=== PATIENT | female | born 1995 | race Caucasian/White ===

== ENCOUNTER 2017-09-12 11:00 | Emergency (ER) | payer OTHER ==
[2017-09-12 11:21] VITALS: BMI 22.1
--- NOTE | 2017-09-12 11:23 | PDOC ---
History of Present Illness - General History Source: Patient Exam Limitations: No Limitations - History of Present Illness Initial Comments: 09/12/17 11:42 22 year old female with no significant past medical history who presents to the ED complaining of approximately 3 days of nausea and multiple episodes of nonbloody nonbilious vomiting. States she vomits approximately 10 times per day and has now progressed to the point of wretching. She is not able to tolerate fluids PO. She now also complains of intermittent, crampy, epigastric pain, burning chest pain with vomiting, and loose stools this morning. The patient denies fever or chills. She denies shortness of breath or palpitations. She does endorse questionable bad foods, but denies recent travel or antibiotic use. <Claribel Pappas - Last Filed: 09/12/17 11:50> <Gibran Alcantar - Last Filed: 09/12/17 16:07> - General Chief Complaint: Pain, Acute Stated Complaint: Nausea/Vomiting Time Seen by Provider: 09/12/17 11:19 Past History <Claribel Pappas - Last Filed: 09/12/17 11:50> - Past Medical History COPD: No - Surgical History Appendectomy: Yes - Suicide/Smoking/Psychosocial Hx Smoking History: Never smoked Information on smoking cessation initiated: No Hx Alcohol Use: No Drug/Substance Use Hx: No Substance Use Type: None <Gibran Alcantar - Last Filed: 09/12/17 16:07> - Past Medical History Allergies/Adverse Reactions: Allergies Allergy/AdvReac Type Severity Reaction Status Date / Time Egg Derived Allergy Verified 09/12/17 11:01 Home Medications: Ambulatory Orders Ondansetron [Zofran Odt -] 4 mg SL BID #14 od.tablet 09/12/17 Review of Systems - Review of Systems Able to Perform ROS?: Yes Comments:: 09/12/17 11:46 A complete review of 10 out of 10 review of systems is taken and is negative apart from what is previously mentioned below and in the HPI. <Claribel Pappas - Last Filed: 09/12/17 11:50> *Physical Exam - Vital Signs Last Vital Signs Temp Pulse Resp BP Pulse Ox 98.8 F 84 18 115/69 100 09/12/17 11:02 09/12/17 11:02 09/12/17 11:02 09/12/17 11:02 09/12/17 11:02 - Physical Exam Comments: 09/12/17 11:45 Vitals: Triage vital signs reviewed General Appearance: No acute distress, well nourished, well developed Head: Atraumatic Eyes: Pupils equal reactive round, extraocular movement intact Ears: TM's normal bilaterally Nose: Nares patent bilaterally; no nasal congestion Throat: +Dry mucous membranes, osterior oropharynx with mild erythema, Neck: Supple; No nuchal rigidity Chest Wall: Nontender Cardiac: Regular rate and rhythm, no murmurs, no rubs, no gallops Lungs: Clear to auscultation bilateral, good air movement bilaterally Abdomen: Soft, nondistended, normal bowel sounds, nontender to palpation Extremities: Full range of motion to all extremities, no cyanosis, clubbing, or edema Skin: Warm and dry, no rashes or lesions, no rash, no petechiae Psych: Normal mood, normal affect <Claribel Pappas - Last Filed: 09/12/17 11:50> - Vital Signs Last Vital Signs Temp Pulse Resp BP Pulse Ox 98.8 F 84 18 115/69 100 09/12/17 11:02 09/12/17 11:02 09/12/17 11:02 09/12/17 11:02 09/12/17 11:02 <Gibran Alcantar - Last Filed: 09/12/17 16:07> ED Treatment Course - Medications Given in the ED: ED Medications Discontinued Medications Generic Name Dose Route Start Last Admin Trade Name Farideh PRN Reason Stop Dose Admin Ondansetron HCl 8 mg 09/12/17 11:24 09/12/17 11:36 Zofran Injection IVPUSH 09/12/17 11:25 8 mg ONCE ONE Administration Sodium Chloride 2,000 ml 09/12/17 11:24 09/12/17 11:36 Normal Saline - IV 09/12/17 11:25 2,000 ml ONCE ONE Administration <Claribel Pappas - Last Filed: 09/12/17 11:50> - LABORATORY CBC & Chemistry Diagram: 09/12/17 11:45 09/12/17 11:45 <Gibran Alcantar - Last Filed: 09/12/17 16:07> Medical Decision Making - Medical Decision Making 09/12/17 11:50 22 yo F here today complaining of 3 days of epigastric pain, nausea, and vomiting. Plan: CBC, CMP, IV fluids, Peptid, Zofran Reassess <Claribel Pappas - Last Filed: 09/12/17 11:50> - Medical Decision Making Reevaluation: 2:27 PM. Repeat abdominal examination no pain. Patient feels better after IV fluids Tylenol Zofran History examination of nausea vomiting and diarrhea consistent with viral GI illness no lower abdominal tenderness to palpation We'll discharge a prescription for Zofran Findings, need follow-up, strict return instructions discussed with patient. <Gibran Alcantar - Last Filed: 09/12/17 16:07> *DC/Admit/Observation/Transfer - Attestations Scribe Attestion: 09/12/17 11:46 Documentation prepared by Claribel Pappas, acting as medical territory manager for Gibran Alacntar MD. <Claribel Pappas - Last Filed: 09/12/17 11:50> - Discharge Dispostion Admit: No <Gibran Alcantar - Last Filed: 09/12/17 16:07> Diagnosis at time of Disposition: Nausea & vomiting Qualifiers: Vomiting type: unspecified Vomiting Intractability: non-intractable Qualified Code(s): R11.2 - Nausea with vomiting, unspecified - Discharge Dispostion Disposition: HOME - Prescriptions Prescriptions: Ondansetron [Zofran Odt -] 4 mg SL BID #14 od.tablet - Referrals Referrals: Lavinia Mckeon [Primary Care Provider] - - Patient Instructions - Post Discharge Activity Forms/Work/School Notes: Back to Work
[2017-09-12] MEDS ORDERED: SODIUM CHLORIDE 0.9% 1000 ML INFUS.BAG IV ONE (11:24)
[2017-09-12] MEDS ORDERED: ONDANSETRON 4 MG/2 ML VIAL IVPUSH ONE (11:24)
[2017-09-12] MEDS ORDERED: FAMOTIDINE IV 20 MG/12 ML VIAL IVPUSH SCH (11:30)
[2017-09-12] MEDS ORDERED: FAMOTIDINE 20 MG/50 ML IVPB 20 MG/50 ML MG IVPB ONE (11:39)
[2017-09-12] MEDS ORDERED: ONDANSETRON 4 MG/2 ML VIAL ONE (11:39)
[2017-09-12 12:02] LABS: BASO % 0.4 % (0-2.0); EOS % 0.2 % (0-4.5); HEMATOCRIT 36.6 % (32.4-45.2); HEMOGLOBIN 12.6 GM/dL (10.7-15.3); LYMPH % 8.5 % (8-40); MCHC 34.3 g/dl (32.0-36.0); MEAN CELL VOLUME 87.4 fl (80-96); MEAN PLT VOLUME 7.3 fl (7.5-11.1); MONO % 7.8 % (3.8-10.2); NEUT % 83.1 % (42.8-82.8); PLATELET COUNT 236 K/MM3 (134-434); RBC 4.19 M/mm3 (3.60-5.2); RDW 12.1 % (11.6-15.6); WHITE BLOOD COUNT 13.4 K/mm3 (4.0-10.0)
[2017-09-12 12:36] LABS: ANION GAP 5 (8-16); BLOOD UREA NITROGEN 8 mg/dL (7-18); CALCIUM 8.9 mg/dL (8.5-10.1); CHLORIDE 106 mmol/L (98-107); CO2 27 mmol/L (21-32); CREATININE 0.7 mg/dL (0.55-1.02); GLUCOSE,RANDOM 84 mg/dL (74-106); POTASSIUM 4.1 mmol/L (3.5-5.1); SGOT/AST 20 U/L (15-37); SGPT/ALT 24 U/L (12-78); SODIUM 138 mmol/L (136-145)
[2017-09-12 12:38] LABS: ALK PHOS 93 U/L (45-117); BILIRUBIN,TOTAL 0.7 mg/dL (0.2-1.0); TOT PROT 7.9 g/dl (6.4-8.2)
[2017-09-12] MEDS ORDERED: ACETAMINOPHEN 1000 MG/100 ML VIAL (NON FORMULARY) IVPB ONE (13:18)
[2017-09-12] MEDS ORDERED: ACETAMINOPHEN INJECTION 100 ML IVPB ONE (13:18)
[2017-09-12 16:07] VITALS: BP 102/67; PULSE 79; TEMP 98.4
== END 2017-09-12 16:00 | disposition home or self-care (01) ==
LOC: JER 11:00
PROC: 3E0337Z Introduction of Electrolytic and Water Balance Substance into Peripheral Vein, Percutaneous Approach (ICD-10-PCS; principal; 2017-09-12)
PROC: 3E033NZ Introduction of Analgesics, Hypnotics, Sedatives into Peripheral Vein, Percutaneous Approach (ICD-10-PCS; 2017-09-12)
PROC: 3E033GC Introduction of Other Therapeutic Substance into Peripheral Vein, Percutaneous Approach (ICD-10-PCS; 2017-09-12)
DX: R11.2 Nausea with vomiting, unspecified (principal)
CPT/HCPCS: 36415; 80053; 85025; 96365; 96375; 99282-25; J0131; J7030

== ENCOUNTER 2018-01-10 13:13 | Emergency (ER) | payer OTHER ==
--- NOTE | 2018-01-10 14:09 | PDOC ---
History of Present Illness - General Chief Complaint: Pain Stated Complaint: VOMITING Time Seen by Provider: 01/10/18 13:45 - History of Present Illness Initial Comments: 01/10/18 14:04 22 year old woman with no past medical history presents with 2 days of fever, NBNB vomiting and 5/10 burning epigastric abdominal pain. The patient reports that 4 collier ago she began having a headache and feeling unwell, 3 days ago she had a fever over 100F, 2 days ago she started vomiting multiple times after drinking pedialyte. This AM she began feeling better but after eating chicken soup threw up > 4 times that was only food and spit up. She has taken Tylenol with mild relief. LNMP: 12/27/17. She denies being sexually active. Denies history of STDs. She has no other complaints at bedside. PMHX: as in HPI PSHX: appendectomy -2016 Meds: Allergies: Tob: Etoh: Rec drugs: PCP: Past History - Past Medical History Allergies/Adverse Reactions: Allergies Allergy/AdvReac Type Severity Reaction Status Date / Time Egg Derived Allergy Verified 01/10/18 13:21 Home Medications: Ambulatory Orders Ondansetron HCl [Zofran] 4 mg PO BID #14 tablet 01/10/18 COPD: No - Surgical History Appendectomy: Yes - Suicide/Smoking/Psychosocial Hx Smoking History: Never smoked Hx Alcohol Use: No Drug/Substance Use Hx: No Substance Use Type: None *Physical Exam - Vital Signs Last Vital Signs Temp Pulse Resp BP Pulse Ox 98.4 F 65 16 125/72 98 01/10/18 13:21 01/10/18 13:21 01/10/18 13:21 01/10/18 13:21 01/10/18 13:21 - Physical Exam Comments: 01/10/18 14:09 no CVA tenderness, no abd tenders,, complains of pain on LUQ Pelvic: no cervical motion tenderness, closed os, physiologic fluid ED Treatment Course - LABORATORY CBC & Chemistry Diagram: 01/10/18 14:58 01/10/18 14:58 Medical Decision Making - Medical Decision Making 01/10/18 14:19 pancreatitis vs gastritis vs biliary disease vs ectopic vs DKA 01/10/18 16:09 Pt. reassessed stable. Feels improved. 01/10/18 18:21 Pt reassessed. Feels improved. Ready to go home. 01/10/18 18:32 US: unremarkable. Pt stable for discharge. *DC/Admit/Observation/Transfer Diagnosis at time of Disposition: Abdominal pain, Nausea & vomiting - Discharge Dispostion Disposition: HOME Condition at time of disposition: Stable Decision to Admit order: No - Prescriptions Prescriptions: Ondansetron HCl [Zofran] 4 mg PO BID #14 tablet - Referrals Referrals: Lavinia Mckeon [Primary Care Provider] - - Patient Instructions Printed Discharge Instructions: DI for Nausea -- Adult, DI for Vomiting -- Adult Additional Instructions: You were seen in the ED for complaints of nausea and vomiting. In the ED you were evaluated with labwork and imaging. There does not appear to be an acute need for immediate hospitalization. You are advised to follow up with your primary care physician within 1 week. Return to the ED immediately if you experience worsening nausea, vomiting, fever or worsening abdominal pain. - Post Discharge Activity Forms/Work/School Notes: Back to Work
--- NOTE | 2018-01-10 14:17 | PDOC ---
Attending Attestation - HPI HPI: 01/10/18 15:07 The patient is a 22 year old female with no significant past medical history who presents to the ED with 3 days of fever, nausea, and vomiting. She reports having taking her temperature three days ago and it was recorded at 103. She has had multiple episodes of nonbloody nonbilious emesis after meals and pedialyte with associated abdominal pain following. Three days ago she also experienced chills, body aches, and headache which have since subsided. She denies any cough, shortness of breath, chest pain, diarrhea, melena, hematochezia, or urinary complaints. LMP was last week. - Physicial Exam PE: 01/10/18 15:12 GENERAL: Awake, alert, and fully oriented, in no acute distress HEAD: No signs of trauma EYES: PERRLA, EOMI, sclera anicteric, conjunctiva clear ENT: Auricles normal inspection, hearing grossly normal, nares patent, oropharynx clear without exudates. Moist mucosa NECK: Normal ROM, supple, no lymphadenopathy, JVD, or masses LUNGS: Breath sounds equal, clear to auscultation bilaterally. No wheezes, and no crackles HEART: Regular rate and rhythm, normal S1 and S2, no murmurs, rubs or gallops ABDOMEN: Soft, nontender, normoactive bowel sounds. No guarding, no rebound. No masses EXTREMITIES: Normal range of motion, no edema. No clubbing or cyanosis. No cords, erythema, or tenderness NEUROLOGICAL: Cranial nerves II through XII grossly intact. Normal speech, normal gait SKIN: Warm, Dry, normal turgor, no rashes - Medical Decision Making 01/10/18 15:12 Documentation prepared by Razia Weathers, acting as medical doctor nuclear medicine for Jennifer Nick MD.
[2018-01-10] MEDS ORDERED: ONDANSETRON 4 MG/2 ML VIAL IVPUSH ONE (14:22)
[2018-01-10] MEDS ORDERED: ACETAMINOPHEN 1000 MG/100 ML VIAL (NON FORMULARY) IVPB ONE (14:23)
[2018-01-10] MEDS ORDERED: SODIUM CHLORIDE 1,000 ML IV SCH ×2 (14:30→17:30)
[2018-01-10] MEDS ORDERED: ONDANSETRON 4 MG/2 ML VIAL ONE (14:32)
[2018-01-10] MEDS ORDERED: ACETAMINOPHEN INJECTION 100 ML IVPB ONE (14:32)
[2018-01-10 14:34] VITALS: BMI 22.3
[2018-01-10 15:03] LABS: BASO % 0.4 % (0-2.0); EOS % 0.1 % (0-4.5); HEMATOCRIT 38.9 % (32.4-45.2); HEMOGLOBIN 13.3 GM/dL (10.7-15.3); LYMPH % 13.1 % (8-40); MCH 29.4 pg (25.7-33.7); MCHC 34.3 g/dl (32.0-36.0); MEAN CELL VOLUME 85.7 fl (80-96); MEAN PLT VOLUME 7.6 fl (7.5-11.1); NEUT % 76.4 % (42.8-82.8); PLATELET COUNT 312 K/MM3 (134-434); RBC 4.54 M/mm3 (3.60-5.2); RDW 12.1 % (11.6-15.6); WHITE BLOOD COUNT 12.4 K/mm3 (4.0-10.0)
[2018-01-10 15:06] LABS: HCG,QUALITATIVE URINE Negative
[2018-01-10 15:12] LABS: URINE APPEARANCE SLCLOUDY; URINE BILIRUBIN NEGATIVE (<2.0 mg/dL); URINE COLOR AMBER; URINE GLUCOSE (UA) NEGATIVE (NEGATIVE); URINE KETONE 1+ (NEGATIVE); URINE LEUK ESTERASE NEGATIVE (NEGATIVE); URINE NITRITE NEGATIVE (NEGATIVE); URINE UROBILINOGEN 4.0 E.U/dl mg/dL (0.2-1.0)
[2018-01-10 15:16] LABS: URINE PROTEIN 2+ (NEGATIVE)
[2018-01-10 15:25] LABS: ALBUMIN 3.8 g/dl (3.4-5.0); ANION GAP 7 MMOL/L (8-16); BILIRUBIN,TOTAL 0.3 mg/dL (0.2-1.0); BLOOD UREA NITROGEN 8 mg/dL (7-18); CALCIUM 9.1 mg/dL (8.5-10.1); CHLORIDE 101 mmol/L (98-107); CO2 29 mmol/L (21-32); CREATININE 0.7 mg/dL (0.55-1.02); GLUCOSE,RANDOM 89 mg/dL (74-106); LIPASE 121 U/L (73-393); POTASSIUM 4.3 mmol/L (3.5-5.1); SGOT/AST 25 U/L (15-37); SGPT/ALT 36 U/L (12-78); SODIUM 137 mmol/L (136-145); TOT PROT 8.8 g/dl (6.4-8.2)
[2018-01-10 15:26] LABS: ALK PHOS 133 U/L (45-117)
[2018-01-10 15:27] LABS: EPI CELLS RARE /HPF (FEW); URINE MUCUS MODERATE
[2018-01-10] MEDS ORDERED: METOCLOPRAMIDE HCL INJECTION 10 MG/2 ML VIAL IVPUSH ONE ×2 (17:28→17:29)
[2018-01-10] MEDS ORDERED: METOCLOPRAMIDE HCL INJECTION 10 MG/2 ML VIAL ONE (17:35)
[2018-01-10 18:09] VITALS: BP 108/71; PULSE 68; TEMP 98
== END 2018-01-10 18:59 | disposition home or self-care (01) ==
LOC: JER 13:13
PROC: 3E0337Z Introduction of Electrolytic and Water Balance Substance into Peripheral Vein, Percutaneous Approach (ICD-10-PCS; principal; 2018-01-10)
PROC: 3E033GC Introduction of Other Therapeutic Substance into Peripheral Vein, Percutaneous Approach (ICD-10-PCS; 2018-01-10)
PROC: 3E033GC Introduction of Other Therapeutic Substance into Peripheral Vein, Percutaneous Approach (ICD-10-PCS; 2018-01-10)
PROC: 3E033NZ Introduction of Analgesics, Hypnotics, Sedatives into Peripheral Vein, Percutaneous Approach (ICD-10-PCS; 2018-01-10)
PROC: 3E033GC Introduction of Other Therapeutic Substance into Peripheral Vein, Percutaneous Approach (ICD-10-PCS; 2018-01-10)
DX: R10.84 Generalized abdominal pain (principal); R11.2 Nausea with vomiting, unspecified
CPT/HCPCS: 36415; 76700-TC; 80053; 81003; 81015; 83690; 84703; 85025; 87086; 96361; 96374; 96375; 99284-25; J0131; J7030

== ENCOUNTER 2018-10-14 18:19 | Emergency (ER) | payer OTHER | END 2018-10-14 22:00 | disposition home or self-care (01) | LOC: JER 18:19 ==

== ENCOUNTER 2019-03-22 10:07 | Emergency (ER) | payer OTHER ==
[2019-03-22 10:30] VITALS: BP 106/66; PULSE 81; TEMP 99.6; BMI 22.4
[2019-03-22] MEDS ORDERED: PANTOPRAZOLE SODIUM 40 MG in SODIUM CHLORIDE 100 ML IVPB ONE (10:55)
[2019-03-22] MEDS ORDERED: KETOROLAC TROMETHAMINE 30 MG/1 ML VIAL IVPUSH ONE (10:55)
[2019-03-22] MEDS ORDERED: ONDANSETRON 4 MG/2 ML VIAL IVPUSH ONE (10:55)
[2019-03-22] MEDS ORDERED: SODIUM CHLORIDE 1,000 ML IV STA (10:55)
[2019-03-22] MEDS ORDERED: PANTOPRAZOLE SODIUM 40 MG/100 ML BAG IVPB ONE (11:53)
[2019-03-22] MEDS ORDERED: KETOROLAC TROMETHAMINE 30 MG/1 ML VIAL ONE (11:54)
[2019-03-22] MEDS ORDERED: ONDANSETRON 4 MG/2 ML VIAL ONE (11:54)
[2019-03-22 12:19] LABS: BASO % 0.2 % (0-2.0); HEMATOCRIT 38.8 % (32.4-45.2); HEMOGLOBIN 13.1 GM/dL (10.7-15.3); LYMPH % 5.9 % (8-40); MCH 29.7 pg (25.7-33.7); MCHC 33.9 g/dl (32.0-36.0); MEAN CELL VOLUME 87.7 fl (80-96); MEAN PLT VOLUME 7.7 fl (7.5-11.1); MONO % 7.4 % (3.8-10.2); NEUT % 86.5 % (42.8-82.8); PLATELET COUNT 250 K/MM3 (134-434); RBC 4.42 M/mm3 (3.60-5.2); RDW 12.9 % (11.6-15.6); WHITE BLOOD COUNT 13.5 K/mm3 (4.0-10.0)
--- NOTE | 2019-03-22 12:28 | PDOC ---
History of Present Illness - General Chief Complaint: Pain Stated Complaint: UPPER ABD PAIN Time Seen by Provider: 03/22/19 10:52 History Source: Patient Exam Limitations: No Limitations - History of Present Illness Travel History: No Initial Comments: 03/22/19 12:06 24-year-old female presents to ED with complaints of epigastric pain rating to her left upper quadrant and right upper quadrant since this morning. Patient states similar symptoms in the past normally aggravated by certain foods but states only had a goat cheese salad last night. Patient states he has had endoscopy performed by Dr. Evangelista with no significant findings. Patient states has had additional work-up including lactose intolerance and denies any findings. Patient has no complaints of fever, chills, urinary complaints, back pain, diarrhea, constipation. Timing/Duration: reports: constant Quality: reports: moderate, cramping, sharpness Abdominal Pain Onset Location: reports: epigastric Pain Radiation: reports: LUQ Activities at Onset: reports: none Aggravating Factors: improves with: None Alleviating Factors: improves with: None Past History - Travel Traveled outside of the country in the last 30 days: No Close contact w/someone who was outside of country & ill: No - Past Medical History Allergies/Adverse Reactions: Allergies Allergy/AdvReac Type Severity Reaction Status Date / Time Egg Derived Allergy Verified 01/10/18 13:21 Home Medications: Ambulatory Orders Cephalexin [Keflex] 500 mg PO BID #12 capsule 03/22/19 Pantoprazole Sodium [Protonix] 40 mg PO DAILY #30 tablet. 03/22/19 COPD: No - Surgical History Appendectomy: Yes - Immunization History Immunization Up to Date: No - Psycho Social/Smoking Cessation Hx Smoking History: Never smoked Have you smoked in the past 12 months: No Information on smoking cessation initiated: No Hx Alcohol Use: No Drug/Substance Use Hx: No Substance Use Type: None Patient Lives Alone: No Lives with/in: parents Abd/GI Specific PMHX - Complaint Specific PMHX GERD: Yes GI Ulcer Disease: No Review of Systems - Review of Systems Able to Perform ROS?: Yes Constitutional: No: Symptoms Reported HEENTM: No: Symptoms Reported Respiratory: No: Symptoms reported Cardiac (ROS): No: Symptoms Reported ABD/GI: Yes: Nausea, Vomiting, Abdominal cramping. No: Poor Appetite, Poor Fluid Intake : No: Symptoms Reported Musculoskeletal: No: Symptoms Reported Integumentary: No: Symptoms Reported Neurological: No: Symptoms reported Endocrine: No: Symptoms Reported Hematologic/Lymphatic: No: Symptoms Reported *Physical Exam - Vital Signs Last Vital Signs Temp Pulse Resp BP Pulse Ox 99.6 F 81 17 106/66 99 03/22/19 10:27 03/22/19 10:27 03/22/19 10:27 03/22/19 10:27 03/22/19 10:27 - Physical Exam General Appearance: Yes: Nourished, Appropriately Dressed. No: Apparent Distress HEENT: positive: EOMI, Pharynx Normal (dry) Neck: positive: Normal Thyroid Respiratory/Chest: positive: Lungs Clear, Normal Breath Sounds. negative: Respiratory Distress, Accessory Muscle Use Cardiovascular: positive: Regular Rhythm, Regular Rate. negative: Murmur Gastrointestinal/Abdominal: positive: Normal Bowel Sounds, Soft, Tenderness ( epigastric and Left upper quadrant. Mild right upper quadrant). negative: Distended Musculoskeletal: negative: CVA Tenderness Extremity: positive: Normal Inspection Integumentary: positive: Normal Color, Warm, Moist Neurologic: positive: Motor Strength 5/5 (Ambulatory) ED Treatment Course - LABORATORY CBC & Chemistry Diagram: 03/22/19 11:45 03/22/19 11:45 Medical Decision Making - Medical Decision Making 03/22/19 12:12 Chief complaint: Left upper quadrant and epigastric pain since last night associated with this a.m. associated with nausea and vomiting and chills. Patient states similar symptoms in the past and has had a EGD with no significant findings. Patient believes she has acid reflux but denies taking any medication for the above. Exam: Patient with epigastric left upper quadrant tenderness mild right upper quadrant tenderness. Patient had no CVA tenderness on exam. Plan: Labs, urine, fluid, meds 03/22/19 13:16 Laboratory Tests 03/22/19 03/22/19 03/22/19 11:45 11:45 12:00 WBC 13.5 H Hgb 13.1 Hct 38.8 Neutrophils % 86.5 H D Sodium 136 Potassium 3.9 Chloride 102 Carbon Dioxide 27 Anion Gap 6 L BUN 8.2 Creatinine 0.8 Random Glucose 96 Calcium 9.5 Total Bilirubin 0.6 AST 27 ALT 30 Total Protein 8.2 Albumin 3.9 Urine Nitrite Ur Leukocyte Esterase Urine WBC (Auto) Urine Casts (Auto) Urine HCG, Qual Negative 03/22/19 12:00 WBC Hgb Hct Neutrophils % Sodium Potassium Chloride Carbon Dioxide Anion Gap BUN Creatinine Random Glucose Calcium Total Bilirubin AST ALT Total Protein Albumin Urine Nitrite Negative Ur Leukocyte Esterase 3+ H Urine WBC (Auto) 41 Urine Casts (Auto) 30 Urine HCG, Qual 03/22/19 13:16 Laboratory Tests 03/22/19 03/22/19 12:00 12:00 Urine Protein 1+ H Urine Ketones 1+ H Urine Urobilinogen 2.0 H Ur Leukocyte Esterase 3+ H Urine WBC (Auto) 41 Urine Casts (Auto) 30 U Epithel Cells (Auto) 11.1 Urine Bacteria (Auto) 780.5 Urine HCG, Qual Negative 2 nd liter ordered. lipase pending. ceftriaxone 1 gm ordered 03/22/19 14:20 Patient will be discharged home with Protonix and Keflex urine culture was sent. Patient also given referral for GI as per her request Discharge - Discharge Information Problems reviewed: Yes Clinical Impression/Diagnosis: UTI (urinary tract infection), Epigastric pain Condition: Improved Disposition: HOME - Additional Discharge Information Prescriptions: Cephalexin [Keflex] 500 mg PO BID #12 capsule Pantoprazole Sodium [Protonix] 40 mg PO DAILY #30 tablet.dr - Follow up/Referral Referrals: Jeremy Kim MD [Staff Physician] - - Patient Discharge Instructions Patient Printed Discharge Instructions: DI for Urinary Tract Infection (UTI) Additional Instructions: At this time I recommend to drink at least 2 L of water on a daily basis. Take antibiotics as prescribed starting tomorrow since you were given your first dose here. Take Protonix as prescribed and I have enclosed a referral to [facility] as per your request. - Post Discharge Activity
[2019-03-22 12:40] LABS: EPI CELLS 11.1 /HPF (0-5/HPF); HYALINE CASTS 30 /lpf (0-8); PH,URINE 6.5 (5.0-8.0); URINE APPEARANCE CLOUDY; URINE BACTERIA 780.5 /hpf (NEGATIVE); URINE BILIRUBIN NEGATIVE (NEGATIVE); URINE COLOR DK YELLOW; URINE GLUCOSE (UA) NEGATIVE (NEGATIVE); URINE KETONE 1+ (NEGATIVE); URINE LEUK ESTERASE 3+ (NEGATIVE); URINE NITRITE NEGATIVE (NEGATIVE); URINE PROTEIN 1+ (NEGATIVE); URINE WBC 41 /hpf (0-5)
[2019-03-22 12:54] LABS: ALBUMIN 3.9 g/dl (3.4-5.0); BILIRUBIN,TOTAL 0.6 mg/dL (0.2-1); BLOOD UREA NITROGEN 8.2 mg/dL (7-18); CALCIUM 9.5 mg/dL (8.5-10.1); CREATININE 0.8 mg/dL (0.55-1.3); POTASSIUM 3.9 mmol/L (3.5-5.1); TOT PROT 8.2 g/dl (6.4-8.2)
[2019-03-22] MEDS ORDERED: CEFTRIAXONE 1 GM in DEXTROSE 5%-WATER - 100 ML IVPB ONE (13:11)
[2019-03-22] MEDS ORDERED: cefTRIAXone SODIUM 1 GM VIAL ONE (13:39)
== END 2019-03-22 14:55 | disposition home or self-care (01) ==
LOC: JER 10:07
PROC: 3E033GC Introduction of Other Therapeutic Substance into Peripheral Vein, Percutaneous Approach (ICD-10-PCS; principal; 2019-03-22)
PROC: 3E03329 Introduction of Other Anti-infective into Peripheral Vein, Percutaneous Approach (ICD-10-PCS; 2019-03-22)
PROC: 3E033GC Introduction of Other Therapeutic Substance into Peripheral Vein, Percutaneous Approach (ICD-10-PCS; 2019-03-22)
PROC: 3E0333Z Introduction of Anti-inflammatory into Peripheral Vein, Percutaneous Approach (ICD-10-PCS; 2019-03-22)
DX: N39.0 Urinary tract infection, site not specified (principal); R10.13 Epigastric pain
CPT/HCPCS: 36415; 80053; 81003; 83690; 84703; 85025; 87086; 99284-25; J7030

== ENCOUNTER 2020-06-08 11:10 | Emergency (ER) | payer OTHER ==
[2020-06-08 11:41] VITALS: BP 114/72; PULSE 69; TEMP 98.5; BMI 24.1
[2020-06-08] MEDS ORDERED: SODIUM CHLORIDE 1,000 ML IV STA (12:19)
[2020-06-08] MEDS ORDERED: ACETAMINOPHEN 1000 MG/100 ML VIAL (NON FORMULARY) IVPB ONE (12:19)
[2020-06-08] MEDS ORDERED: METOCLOPRAMIDE HCL INJECTION 10 MG/2 ML VIAL IVPUSH ONE (12:19)
[2020-06-08] MEDS ORDERED: METOCLOPRAMIDE HCL INJECTION 10 MG/2 ML VIAL ONE (13:01)
[2020-06-08] MEDS ORDERED: ACETAMINOPHEN INJECTION 100 ML IVPB ONE (13:01)
[2020-06-08 13:50] LABS: BASO % 0.7 % (0-2.0); EOS % 0.6 % (0-4.5); HEMATOCRIT 41.9 % (32.4-45.2); HEMOGLOBIN 14.3 GM/dL (10.7-15.3); LYMPH % 21.8 % (8-40); MCH 29.9 pg (25.7-33.7); MCHC 34.1 g/dl (32.0-36.0); MEAN CELL VOLUME 87.7 fl (80-96); MEAN PLT VOLUME 8.3 fl (7.5-11.1); MONO % 4.3 % (3.8-10.2); NEUT % 72.6 % (42.8-82.8); PLATELET COUNT 357 K/MM3 (134-434); RBC 4.78 M/mm3 (3.60-5.2); RDW 12.6 % (11.6-15.6)
[2020-06-08 13:51] LABS: PH,URINE >= 9.0 (5.0-8.0); URINE APPEARANCE TURBID; URINE BILIRUBIN NEGATIVE (NEGATIVE); URINE COLOR YELLOW; URINE GLUCOSE (UA) NEGATIVE (NEGATIVE); URINE KETONE NEGATIVE (NEGATIVE); URINE LEUK ESTERASE NEGATIVE (NEGATIVE); URINE NITRITE NEGATIVE (NEGATIVE); URINE PROTEIN NEGATIVE (NEGATIVE)
[2020-06-08 13:53] LABS: HCG,QUALITATIVE URINE Negative
[2020-06-08 14:08] LABS: POTASSIUM 4.3 mmol/L (3.5-5.1)
[2020-06-08 14:11] LABS: ALBUMIN 4.4 g/dl (3.4-5.0); CALCIUM 9.8 mg/dL (8.5-10.1)
[2020-06-08 14:15] LABS: CREATININE 0.7 mg/dL (0.55-1.3)
[2020-06-08 14:16] LABS: BILIRUBIN,TOTAL 0.8 mg/dL (0.2-1)
== END 2020-06-08 15:20 | disposition home or self-care (01) ==
LOC: JER 11:10
PROC: 3E0333Z Introduction of Anti-inflammatory into Peripheral Vein, Percutaneous Approach (ICD-10-PCS; principal; 2020-06-08)
PROC: 3E033GC Introduction of Other Therapeutic Substance into Peripheral Vein, Percutaneous Approach (ICD-10-PCS; 2020-06-08)
PROC: 3E0337Z Introduction of Electrolytic and Water Balance Substance into Peripheral Vein, Percutaneous Approach (ICD-10-PCS; 2020-06-08)
DX: K52.9 Noninfective gastroenteritis and colitis, unspecified (principal)
CPT/HCPCS: 36415; 80053; 81003; 83690; 84703; 85025; 87077; 87086; 99284-25; C9803; J0131; U0003

== ENCOUNTER 2020-12-17 14:36 | Emergency (ER) | payer OTHER ==
[2020-12-17 14:46] VITALS: BP 117/75; PULSE 87; TEMP 98; BMI 24.5
[2020-12-17] MEDS ORDERED: ACETAMINOPHEN 325 MG TABLET (FP) PO ONE (15:27)
[2020-12-17] MEDS ORDERED: ACETAMINOPHEN 325 MG TABLET (FP) ONE (15:28)
== END 2020-12-17 15:40 | disposition home or self-care (01) ==
LOC: JER 14:36 → JERFT 14:36
DX: O9A.211 Injury, poisoning and certain other consequences of external causes complicating pregnancy, first trimester (principal); S93.492A Sprain of other ligament of left ankle, initial encounter; X50.9XXA Other and unspecified overexertion or strenuous movements or postures, initial encounter; Z3A.01 Less than 8 weeks gestation of pregnancy
CPT/HCPCS: 73610-TC-LT-FY; 73630-TC-LT; 99283-25

== ENCOUNTER 2020-12-25 18:32 | Emergency (ER) | payer OTHER ==
[2020-12-25 18:47] VITALS: BP 120/72; PULSE 87; TEMP 98; BMI 24.5
[2020-12-25] MEDS ORDERED: SODIUM CHLORIDE 1,000 ML IV STA ×2 (20:23→22:52)
[2020-12-25] MEDS ORDERED: ONDANSETRON 4 MG/2 ML VIAL IVPB ONE (21:35)
[2020-12-25] MEDS ORDERED: ONDANSETRON 4 MG/2 ML VIAL ONE (21:53)
[2020-12-25 22:13] LABS: EPI CELLS 35 /uL (0-25.1); HYALINE CASTS 2 /uL (0-3.1); PH,URINE 5.5 (5.0-8.0); URINE APPEARANCE CLEAR; URINE BACTERIA 1427 /uL (0-1359); URINE BILIRUBIN NEGATIVE (NEGATIVE); URINE COLOR DK YELLOW; URINE GLUCOSE (UA) NEGATIVE (NEGATIVE); URINE KETONE 4+ (NEGATIVE); URINE LEUK ESTERASE NEGATIVE (NEGATIVE); URINE NITRITE NEGATIVE (NEGATIVE); URINE PROTEIN 1+ (NEGATIVE); URINE RBC 5 /uL (0-23.9); URINE WBC 37 /uL (0-25.8)
[2020-12-25 22:15] LABS: BASO % 0.2 % (0-2.0); EOS % 0.1 % (0-4.5); HEMATOCRIT 35.5 % (32.4-45.2); HEMOGLOBIN 12.6 GM/dL (10.7-15.3); LYMPH % 9.8 % (8-40); MCH 30.1 pg (25.7-33.7); MCHC 35.4 g/dl (32.0-36.0); MEAN PLT VOLUME 7.4 fl (7.5-11.1); MONO % 4.4 % (3.8-10.2); NEUT % 85.5 % (42.8-82.8); PLATELET COUNT 297 10^3/uL (134-434); RBC 4.18 M/mm3 (3.60-5.2); RDW 12.7 % (11.6-15.6); WHITE BLOOD COUNT 13.7 K/mm3 (4.0-10.0)
[2020-12-25 22:32] LABS: ALBUMIN 4.3 g/dl (3.4-5.0); BLOOD UREA NITROGEN 9.2 mg/dL (7-18); CALCIUM 9.2 mg/dL (8.5-10.1)
[2020-12-25 22:34] LABS: CREATININE 0.7 mg/dL (0.55-1.3)
[2020-12-25 22:36] LABS: BILIRUBIN,TOTAL 0.5 mg/dL (0.2-1); TOT PROT 8.4 g/dl (6.4-8.2)
== END 2020-12-26 00:07 | disposition home or self-care (01) ==
LOC: JER 18:32
PROC: 3E033GC Introduction of Other Therapeutic Substance into Peripheral Vein, Percutaneous Approach (ICD-10-PCS; principal; 2020-12-25)
PROC: 3E0337Z Introduction of Electrolytic and Water Balance Substance into Peripheral Vein, Percutaneous Approach (ICD-10-PCS; 2020-12-25)
PROC: 3E0337Z Introduction of Electrolytic and Water Balance Substance into Peripheral Vein, Percutaneous Approach (ICD-10-PCS; 2020-12-25)
DX: O21.0 Mild hyperemesis gravidarum (principal); O23.11 Infections of bladder in pregnancy, first trimester; Z3A.01 Less than 8 weeks gestation of pregnancy
CPT/HCPCS: 36415; 76817-TC; 80053; 81003; 84702; 85025; 99284-25

== ENCOUNTER 2022-12-01 22:01 | Emergency (ER) | payer OTHER ==
[2022-12-01 22:07] VITALS: BP 116/76; PULSE 92; RESP 19; TEMP 98.4; BMI 26.4
[2022-12-01] MEDS ORDERED: ONDANSETRON *ODT* 4 MG TABLET SL ONE (22:20)
[2022-12-01] MEDS ORDERED: ONDANSETRON *ODT* 4 MG TABLET ONE (22:27)
== END 2022-12-02 00:03 | disposition home or self-care (01) ==
LOC: JER 22:01
DX: R11.2 Nausea with vomiting, unspecified (principal); R19.7 Diarrhea, unspecified
CPT/HCPCS: 84703; 99283-25; Q0162

== ENCOUNTER 2023-11-16 23:05 | Emergency (ER) | payer OTHER ==
[2023-11-16 23:13] VITALS: BP 115/65; PULSE 72; RESP 19; TEMP 97.6; BMI 27.3
[2023-11-17] MEDS ORDERED: ACETAMINOPHEN INJECTION 100 ML IVPB ONE (00:50)
[2023-11-17] MEDS ORDERED: ONDANSETRON 4 MG/2 ML VIAL ONE (00:50)
[2023-11-17] MEDS: ONDANSETRON 4 MG/2 ML VIAL IVPUSH ONE (00:58)
[2023-11-17] MEDS: ACETAMINOPHEN 1000 MG/100 ML BAG IVPB ONE (01:00)
[2023-11-17] MEDS: SODIUM CHLORIDE 1,000 ML IV STA (01:01)
[2023-11-17 01:25] LABS: BASO % 0.3 % (0-2.0); EOS % 0.4 % (0-4.5); HEMATOCRIT 38.7 % (32.4-45.2); HEMOGLOBIN 13.3 GM/dL (10.7-15.3); LYMPH % 11.9 % (8-40); MCH 29.6 pg (25.7-33.7); MCHC 34.2 g/dl (32.0-36.0); MEAN CELL VOLUME 86.5 fl (80-96); MEAN PLT VOLUME 7.5 fl (7.5-11.1); NEUT % 82.4 % (42.8-82.8); PLATELET COUNT 316 10^3/uL (134-434); RBC 4.48 M/mm3 (3.60-5.2); RDW 12.8 % (11.6-15.6); WHITE BLOOD COUNT 11.4 K/mm3 (4.0-10.0)
[2023-11-17 01:27] LABS: EPI CELLS >36 /uL (0-25.1); HYALINE CASTS 1 /uL (0-3.1); PH,URINE 7.5 (5.0-8.0); URINE APPEARANCE CLOUDY; URINE BACTERIA >9,000 /uL (0-1359); URINE BILIRUBIN NEGATIVE (NEGATIVE); URINE COLOR YELLOW; URINE GLUCOSE (UA) NEGATIVE (NEGATIVE); URINE KETONE 2+ (NEGATIVE); URINE LEUK ESTERASE NEGATIVE (NEGATIVE); URINE NITRITE POSITIVE (NEGATIVE); URINE PROTEIN TRACE (NEGATIVE); URINE RBC 9 /uL (0-23.9); URINE UROBILINOGEN 0.2 mg/dL (0.2-1.0); URINE WBC 17 /uL (0-25.8)
[2023-11-17] MEDS ORDERED: CEPHALEXIN MONOHYDRATE 500 MG CAPSULE (UD) ONE (01:45)
[2023-11-17 01:48] LABS: POTASSIUM 3.9 mmol/L (3.5-5.1)
[2023-11-17] MEDS: CEPHALEXIN MONOHYDRATE 500 MG CAPSULE (UD) PO ONE (01:48)
[2023-11-17 01:50] LABS: CALCIUM 9.1 mg/dL (8.5-10.1)
[2023-11-17 01:51] LABS: BLOOD UREA NITROGEN 5.4 mg/dL (7-18)
[2023-11-17 01:53] LABS: CREATININE 0.6 mg/dL (0.55-1.3)
[2023-11-17 01:55] LABS: BILIRUBIN,TOTAL 0.5 mg/dL (0.2-1); TOT PROT 8.1 g/dl (6.4-8.2)
== END 2023-11-17 02:46 | disposition home or self-care (01) ==
LOC: JER 23:05
PROC: 3E033NZ Introduction of Analgesics, Hypnotics, Sedatives into Peripheral Vein, Percutaneous Approach (ICD-10-PCS; principal; 2023-11-16)
PROC: 3E033GC Introduction of Other Therapeutic Substance into Peripheral Vein, Percutaneous Approach (ICD-10-PCS; 2023-11-16)
PROC: 3E0337Z Introduction of Electrolytic and Water Balance Substance into Peripheral Vein, Percutaneous Approach (ICD-10-PCS; 2023-11-16)
DX: O23.41 Unspecified infection of urinary tract in pregnancy, first trimester (principal); O26.891 Other specified pregnancy related conditions, first trimester; R10.84 Generalized abdominal pain; O21.9 Vomiting of pregnancy, unspecified; O99.891 Other specified diseases and conditions complicating pregnancy; R19.7 Diarrhea, unspecified; Z3A.01 Less than 8 weeks gestation of pregnancy; Z20.822 Contact with and (suspected) exposure to COVID-19
CPT/HCPCS: 0241U-QW; 36415; 80053; 81003; 83690; 84703; 85025; 87086; 87186; 99284-25; J0131